=== PATIENT | female | born 1975 | race Caucasian/White ===

== ENCOUNTER → 2019-09-01 | Outpatient (CLI) | payer BC ==
--- NOTE | 2019-09-01 11:45 | US ---
EXAMINATION TYPE: US thyroid st tissue head/neck DATE OF EXAM: 09/01/2019 COMPARISON: NONE CLINICAL HISTORY: E04.1 thyroid nodule. Thyroid nodule. GLAND SIZE: Right Lobe: 3.6 x 1.3 x 1.3 cm Overall Parenchyma: homogenous Left Lobe: 3.6 x 1.2 x 1.3 cm Overall Parenchyma: homogeneous Isthmus Thickness: .2 cm NODULES RIGHT: # of nodules measured on right: 0 LEFT: # of nodules measured on left: 0 ISTHMUS: # of nodules measured in the isthmus: 0 Bilateral neck scanned, no evidence of lymphadenopathy. IMPRESSION: Homogeneous thyroid gland. No discrete nodule.
== END | disposition home or self-care (01) ==
LOC: RADUSWWP 10:40
DX: E04.1 Nontoxic single thyroid nodule (principal)
CPT/HCPCS: 76536